=== PATIENT | male | born 1980 | race Caucasian/White ===

== ENCOUNTER 2019-04-23 03:46 | Emergency (ER) | payer MEDICAID ==
[~2019-04-23] VITALS: Ht 175.3 cm; Wt 97.5 kg
[2019-04-23 04:14] VITALS: BP 176/89
[2019-04-23] MEDS ORDERED: IBUPROFEN 400 MG TABLET ONE (04:20)
[2019-04-23] MEDS ORDERED: IBUPROFEN 400 MG TABLET PO ONE (04:30)
== END 2019-04-23 04:29 | disposition home or self-care (01) ==
LOC: ER 03:50
DX: J18.9 Pneumonia, unspecified organism (principal); E11.9 Type 2 diabetes mellitus without complications
CPT/HCPCS: 71045-TC